=== PATIENT | male | born 1980 | race Caucasian/White ===

== ENCOUNTER 2021-06-13 14:12 | Emergency (ER) | payer MEDICAID ==
[~2021-06-13] VITALS: Ht 182.9 cm; Wt 127.3 kg
[2021-06-13] MEDS ORDERED: METF-960 PO (14:25)
[2021-06-13] MEDS ORDERED: LISI-894 PO (14:25)
[2021-06-13] MEDS ORDERED: ASPI-1450 PO (14:25)
[2021-06-13] MEDS ORDERED: INSLAN SQ (14:25)
[2021-06-13] MEDS ORDERED: INSU100V SQ (14:25)
[2021-06-13] MEDS ORDERED: GEMF600T90 PO (14:25)
[2021-06-13] MEDS ORDERED: ATOR40TA28 PO (14:25)
[2021-06-13 18:48] VITALS: BP 116/80
== END 2021-06-13 19:21 | disposition home or self-care (01) ==
LOC: EMS 14:14
DX: G44.209 Tension-type headache, unspecified, not intractable (principal); E11.9 Type 2 diabetes mellitus without complications; E78.00 Pure hypercholesterolemia, unspecified; I10 Essential (primary) hypertension
CPT/HCPCS: 70450; 82962; 99284

== ENCOUNTER 2023-03-07 13:26 | Emergency (ER) | payer MEDICAID ==
[~2023-03-07] VITALS: Ht 188 cm; Wt 140.9 kg
[~2023-03-07 13:26] MED LIST: ASPI-1450 PO; ATOR40TA28 PO; GEMF-77 PO; INSLAN SQ; INSU100V SQ; LISI-894 PO; METF-1211 PO
[2023-03-07 13:53] LABS: COVID AG,FIA SOURCE NASAL SWAB
[2023-03-07 14:15] LABS: INFLUENZA TYPE A NEGATIVE FOR TYPE A (NEGATIVE); INFLUENZA TYPE B NEGATIVE FOR TYPE B (NEGATIVE)
[2023-03-07] MEDS ORDERED: ACETAMINOPHEN 500 MG TABLET PO ONE (14:15)
[2023-03-07] MEDS ORDERED: ALBUTEROL SULFATE HFA 90 MCG/PUFF 8 GM INHALER IH ONE (14:15)
[2023-03-07] MEDS ORDERED: IBUPROFEN 600 MG TABLET PO ONE (14:15)
[2023-03-07 16:31] VITALS: BP 126/76
== END 2023-03-07 17:03 | disposition home or self-care (01) ==
LOC: EMS 13:29
DX: U07.1 COVID-19 (principal); E11.9 Type 2 diabetes mellitus without complications; E78.00 Pure hypercholesterolemia, unspecified; I10 Essential (primary) hypertension; Z20.822 Contact with and (suspected) exposure to COVID-19
CPT/HCPCS: 99284; 71045; 87426; 82962; 87430; 87804; 94640; J3535